=== PATIENT | female | born 1975 | race Hispanic/Latino ===

== ENCOUNTER 2017-11-20 08:27 | Outpatient (CLI) | payer OTHER | END 2017-11-20 08:28 | disposition home or self-care (01) | LOC: BICMAMMO 08:27 | PROVIDERS: ATTEND Nurse Practitioner Women's Health | DX: N63.13 Unspecified lump in the right breast, lower outer quadrant (principal); Z98.82 Breast implant status | CPT/HCPCS: 77066; G0279 ==

== ENCOUNTER 2023-01-22 10:35 | Day surgery (SDC) | payer OTHER ==
[2023-01-22] MEDS ORDERED: Bupivacaine PF 0.5% 30 ML VIAL ONE (11:45)
[2023-01-22] MEDS ORDERED: fentaNYL 50 mcg/mL 1 mL Vial ONE ×2 (11:45→13:00)
[2023-01-22] MEDS ORDERED: Midazolam HCl 2 mg/2 ml Vial ONE (11:45)
[2023-01-22] MEDS ORDERED: CEFAZOLIN 2 GM VIAL ONE (12:00)
[2023-01-22] MEDS ORDERED: Sodium Chloride 0.9% 100 ML ONE (12:00)
[2023-01-22] MEDS ORDERED: PROPOFOL 20 ML ONE (12:15)
[2023-01-22] MEDS ORDERED: Ondansetron PF 4 MG/2 ML Vial ONE ×2 (12:25→12:57)
[2023-01-22] MEDS ORDERED: Bupivacaine HCl 0.5%/Epinephrine 1:200,000/PF 30 ml Vial ONE (12:25)
[2023-01-22] MEDS ORDERED: PROPOFOL 200 MG/20 ML VIAL ONE (12:25)
[2023-01-22] MEDS ORDERED: Lidocaine 1% PF 5 ML VIAL ONE (12:25)
[2023-01-22] MEDS ORDERED: Dexamethasone 20 MG/5 ML VIAL ONE ×2 (12:25→12:57)
[2023-01-22] MEDS ORDERED: Promethazine HCl 25 MG/ML VIAL ONE (14:09)
== END 2023-01-22 15:32 | disposition home or self-care (01) ==
LOC: SDC 10:35
PROVIDERS: ATTEND Orthopaedic Surgery
PROC: 0PSL04Z Reposition Left Ulna with Internal Fixation Device, Open Approach (ICD-10-PCS; principal; 2023-01-22)
PROC: 0PSJ04Z Reposition Left Radius with Internal Fixation Device, Open Approach (ICD-10-PCS; principal; 2023-01-22)
DX: S52.302A Unspecified fracture of shaft of left radius, initial encounter for closed fracture (principal); S52.202A Unspecified fracture of shaft of left ulna, initial encounter for closed fracture; S52.92XA Unspecified fracture of left forearm, initial encounter for closed fracture; Z98.890 Other specified postprocedural states; Z79.899 Other long term (current) drug therapy; V89.2XXA Person injured in unspecified motor-vehicle accident, traffic, initial encounter
CPT/HCPCS: C1713; C1874; J1100; J2250; J2405; J2550; J2704; J3010; J3490; S0020

== ENCOUNTER 2024-11-05 15:40 | Outpatient (CLI) | payer BC | END 2024-11-05 15:41 | disposition home or self-care (01) | LOC: BICMAMMO 15:40 | PROVIDERS: ATTEND Nurse Practitioner Family | DX: Z12.31 Encounter for screening mammogram for malignant neoplasm of breast (principal); Z98.82 Breast implant status | CPT/HCPCS: 77063; 77067 ==